=== PATIENT | male | born 1950 ===

== ENCOUNTER 2016-10-20 08:15 | Day surgery (SDC) | payer BC ==
[~2016-10-20] VITALS: Ht 165.1 cm; Wt 62.1 kg
[~2016-10-20 08:15] MED LIST: LR 1000ml 1,000 ML IVLG SCH
[2016-10-20] MEDS ORDERED: ZOCOR20 M1 ORAL (09:14)
[2016-10-20] MEDS ORDERED: METFORMIN HCL1000 M3 PO (09:14)
[2016-10-20] MEDS ORDERED: ASPIR 8181 MG ORAL (09:14)
[2016-10-20] MEDS ORDERED: diabetic med PO (09:14)
[2016-10-20 09:15] VITALS: BP 116/70
[2016-10-20] MEDS ORDERED: Propofol 10mg/ml 20ml IV ONE (10:50)
[2016-10-20] MEDS ORDERED: Morphine Sulfate 10mg/ml Inj ONE (10:50)
[2016-10-20] MEDS ORDERED: LR 1000ml ONE (10:50)
[2016-10-20] MEDS ORDERED: Midazolam 2mg/2ml Inj ONE (10:50)
[2016-10-20] MEDS ORDERED: fentaNYL 100 mcg/2 mL IV ONE (10:50)
--- NOTE | 2016-10-20 10:55 | Short Stay Surgery H&P ---
History of Present Illness History of Present Illness Chief Complaint Screening colonoscopy HPI Navjot De La Cruz is a 66 year old male who was admitted on for Colon Screening Patient History Allergies: Coded Allergies: No Known Allergies (Unverified , 10/19/16) PAST MEDICAL HISTORY: (1) Diabetes (2) Hyperlipidemia (3) History of appendectomy Past Surgeries: Social History: Medication History Scheduled Aspirin* (Aspir 81*), 81 MG ORAL DAILY, (Reported) Metformin HCl (Metformin HCl ER), 1,000 MG PO BID, (Reported) Simvastatin (Zocor), 20 MG ORAL BEDTIME, (Reported) [diabetic med], 30 MG PO DAILY, (Reported) Review of Systems Cardiovascular: Reports: no symptoms Respiratory: Reports: no symptoms Skeletal: Reports: no symptoms Gastrointestinal: Reports: no symptoms Genitourinary: Reports: no symptoms Neurologic: Reports: no symptoms Endocrine: Reports: no symptoms Hematologic: Reports: no symptoms Physical Exam Vital Signs Last Vital Signs Date Time Temp Pulse Resp B/P Pulse Ox O2 Delivery O2 Flow Rate FiO2 10/20/16 09:15 98.9 63 18 116/70 96 Room Air Skin: normal HENT: normal Heart: normal Lungs: normal Abdomen: normal Extremities: normal Genitourinary: normal Plan Plan of Care Total colonoscopy Preop Interventions None. Summary of Findings See the reports Final Diagnosis: Attestation Are the patient's medical conditions optimized for surgery? ASTRID ROSALES Oct 20, 2016 10:55
--- NOTE | 2016-10-20 10:56 | Pre-Procedure Note/Attestation ---
Pre-Procedure Note/Attestation Complete Prior to Procedure Planned Procedure: left Procedure Narrative: Examination od the colon via colonoscopy Indications for Procedure Pre-Operative Diagnosis: R/O colon CA/polyps Attestation I attest that I discussed the nature of the procedure; its benefits; risks and complications; and alternatives (and the risks and benefits of such alternatives ), prior to the procedure, with the patient (or the patient's legal community relations representative). I attest that, if there was a reasonable possibility of needing a blood transfusion, the patient (or the patient's legal community relations representative) was given the [facility] standardized written summary, pursuant to the [place] Blood Safety Act ([place] Health and Safety Code # 1645, as amended). I attest that I re-evaluated the patient just prior to the surgery and that there has been no change in the patient's H&P, except as documented below: BOBBY,SAID Oct 20, 2016 10:56
--- NOTE | 2016-10-20 11:04 | Anethesia Preoperative Eval ---
Anesthesia Pre-op PMH/ROS General Date of Evaluation: Oct 20, 2016 Time of Evaluation: 10:49 ASA Score: ASA 2 Mallampati Score Class I : Soft palate, uvula, fauces, pillars visible Class II: Soft palate, uvula, fauces visible Class III: Soft palate, base of uvula visible Class IV: Only hard plate visible Mallampati Classification: Class II Surgeon: Stacy Diagnosis: Abdominal Pain Surgical Procedure: Colonoscopy Anesthesia History: none Family History: no anesthesia problems Allergies: Coded Allergies: No Known Allergies (Unverified , 10/19/16) Medications: see eMAR Anesthesia Pre-op Phys. Exam Physician Exam Last Vital Signs Date Time Temp Pulse Resp B/P Pulse Ox O2 Delivery O2 Flow Rate FiO2 10/20/16 09:15 98.9 63 18 116/70 96 Room Air Constitutional: NAD Neurologic: CN 2-12 intact Cardiovascular: RRR Respiratory: CTA Airway Exam Mallampati Score: Class II MO: full ROM: full Teeth: intact Anesthesia Pre-op A/P Risk Assessment & Plan Plan: MAC Status Change Before Surgery: No Pre-Antibiotics Given Within 1 Hr of Incision: Clayton Taylor M.D. Oct 20, 2016 11:04
--- NOTE | 2016-10-20 11:06 | Immediate Post-Op Evaluation ---
Immediate Post-Op Evalulation Immediate Post-Op Evalulation Procedure: Colonoscopy Date of Evaluation: Oct 22, 2016 Time of Evaluation: 08:00 IV Fluids: 200 Blood Products: 0 Urinary Output: 0 Blood Pressure Systolic: 143 Blood Pressure Diastolic: 70 Pulse Rate: 54 Respiratory Rate: 16 O2 Sat by Pulse Oximetry: 99 Temperature (Fahrenheit): 98 Pain Score (1-10): 0 Nausea: No Vomiting: No Patient Status: awake, reacts, patent Hydration Status: adequate Given Within 1 Hr of Incision: Clayton Taylor M.D. Oct 20, 2016 11:06
--- NOTE | 2016-10-20 11:07 | Endoscopy Procedure Note ---
Endoscopy Procedure Note Procedures Performed: colonoscopy - Substandard colon prep with evidence of internal hemorrhoids, otherwise normal total colonoscopy. Specimen: yes Pt Tolerated Procedure Well: Yes Estimated Blood Loss: none Anesthesiologist: Dr. Jasso Anesthesia: moderate sedation Medication Given: see anesthesia record Implant(s) used?: No 50 yrs or older w/o bx or poly: Yes 10yrs. F/U not recommended: Yes <3yrs. since last colonoscopy: No Med reason:<3 yrs.: System Reason:<3 yrs.: Last colonoscopy >= to 3yrs: Yes ASTRID ROSALES Oct 20, 2016 11:07
--- NOTE | 2016-10-20 11:07 | 48 Hour Post Anesthesia Eval ---
Post Anesthesia Evaluation Procedure: Colonoscopy Date of Evaluation: Oct 22, 2016 Time of Evaluation: 08:00 Blood Pressure Systolic: 147 0: 78 Pulse Rate: 70 Respiratory Rate: 14 Temperature (Fahrenheit): 98 O2 Sat by Pulse Oximetry: 99 Airway: patent Nausea: No Vomiting: No Hydration Status: adequate Mental Status/LOC: patient returned to baseline Follow-up care needed: patient intructions given Clayton Serrano M.D. Oct 20, 2016 11:07
--- NOTE | 2016-10-20 11:08 | Discharge Instructions ---
Discharge Instructions Discharge Instructions Follow up with: No need to follow up in the office after colonoscopy For Congestive Heart Failure Reminder Report to your physician any weight gain of 5 pounds or more in one week. ASTRID ROSALES Oct 20, 2016 11:08
[2016-10-20] MEDS ORDERED: fentaNYL 100 mcg/2 mL IV PRN (11:15)
[2016-10-20] MEDS ORDERED: Metoclopramide 10mg/2ml Inj IVP PRN (11:15)
[2016-10-20 11:20] VITALS: BP 126/76
[2016-10-20 11:30] VITALS: BP_SYST 127; BP_SYST 129; BP_DIAS 71; BP_DIAS 72
[2016-10-20 11:55] VITALS: BP 131/67
[2016-10-20 12:05] VITALS: BP 124/66
[2016-10-20 12:20] VITALS: BP 118/69
--- NOTE | 2016-10-20 23:30 | Operative Note - Dictated ---
DATE OF OPERATION: 10/20/2016 SURGEON: Lino Kumar M.D. PROCEDURE: Total colonoscopy. PREOPERATIVE DIAGNOSIS: Screening colonoscopy. POSTOPERATIVE DIAGNOSIS: 1. Internal hemorrhoids, otherwise completely normal study up to the base of the cecum as examined. 2. Substandard colonic preparation. MEDICATION USED: Per Dr. Jasso, anesthesiologist. INSTRUMENT: GIF Olympus videocolonoscope. DESCRIPTION OF PROCEDURE: The patient, after arriving and the endoscopy unit, was told about risks and benefits of the procedure, which he accepted and signed the informed consent. He was then put on the left lateral decubitus position. After adequate IV sedation, the scope was gently passed through the anal area, which revealed evidence of some hemorrhoidal tags, and retroflexion maneuver of the scope also revealed evidence of minimal internal hemorrhoids, which were not friable. At this time, the rest of the rectum was examined, which looked completely normal and gradually, the scope was advanced into the rectosigmoid, descending colon, transverse, right hepatic flexure, and finally advanced all the way to the base of the cecum. The colon cleanup was substandard, however, there was no any gross evidence of polyps, tumors, inflammatory process, ulceration, etc. At this time, after reaching to the base of the cecum within 7 minutes, the scope was gradually pulled out and re-evaluation of the colon did not reveal any abnormality. The patient tolerated the procedure well and left the endoscopy room in good condition. Lino Kumar M.D. DR: MARIA ISABEL JOB#: [id number] CC:
== END 2016-10-20 12:25 | disposition home or self-care (01) ==
LOC: GAS 08:15
DX: Z12.11 Encounter for screening for malignant neoplasm of colon (principal); K64.8 Other hemorrhoids; E11.9 Type 2 diabetes mellitus without complications; E78.5 Hyperlipidemia, unspecified; Z79.82 Long term (current) use of aspirin; Z79.84 Long term (current) use of oral hypoglycemic drugs; Z79.899 Other long term (current) drug therapy; Z90.49 Acquired absence of other specified parts of digestive tract
CPT/HCPCS: 45378; 82962; J2250; J2270; J2704; J3010; J7120; 94003; 94150